=== PATIENT | male | born 1990 | race Caucasian/White ===

== ENCOUNTER 2021-01-14 08:27 | Observation (INO) ==
[2021-01-14] MEDS ORDERED: Nicotine 2 MG GUM BC PRN (10:05)
[2021-01-14] MEDS ORDERED: *HR* LORazepam 1 MG TABLET PO PRN (11:57)
[2021-01-14] MEDS ORDERED: hydrOXYzine pamoate 25 MG CAPSULE PO PRN (11:57)
[2021-01-14] MEDS ORDERED: haloperidoL 5 MG TABLET PO PRN (11:57)
[2021-01-14] MEDS ORDERED: QUEtiapine Fumarate 25 MG TABLET PO PRN (11:57)
[2021-01-14] MEDS ORDERED: *HR* LORazepam 2 MG/ML VIAL IM PRN (11:57)
[2021-01-14] MEDS ORDERED: Mag Hydrox/Al Hydrox/Simeth 30 ML UDC PO PRN (11:57)
[2021-01-14] MEDS ORDERED: Acetaminophen 325 MG TABLET PO PRN (11:57)
[2021-01-14] MEDS ORDERED: MOM Conc 10 ML UD.LIQ PO PRN (11:57)
[2021-01-14] MEDS ORDERED: Haloperidol Lactate 5 MG/ML VIAL IM PRN (11:57)
[2021-01-14] MEDS: Nicotine 21 MG PATCH.TD24 TD SCH (15:04)
[2021-01-15 08:26] VITALS: BP 121/86
[2021-01-15] MEDS: Nicotine 21 MG PATCH.TD24 TD SCH (08:36)
== END 2021-01-15 10:20 | disposition home or self-care (01) ==
LOC: EMEROOARM 08:27 → INTOOBSV 11:39 → 1ANU 11:39
PROVIDERS: ADMIT Psychiatry & Neurology Psychiatry; ATTEND Psychiatry & Neurology Psychiatry

== ENCOUNTER 2022-02-08 07:36 | Inpatient (IN) ==
[2022-02-08 09:08] LABS: Basophils % 0.3 %; Eosinophils % 0.2 %; Hemoglobin 14.5 g/dL (12.9-16.9); Immature Granulocytes % 0.3 % (0-4); Lymphocytes # 1.8 K/mcL (0.6-4.6); Lymphocytes % 19.7 %; Mean Corpuscular HGB Conc 32.2 g/dL (31.6-35.5); Mean Corpuscular Hemoglobin 29.6 pg (28.0-33.3); Mean Corpuscular Volume 91.8 fL (83.0-100.0); Mean Platelet Volume 8.5 fL (9.4-12.4); Monocytes # 0.7 K/mcL (0.0-1.3); Monocytes % 7.4 %; Neutrophils # 6.5 K/mcL (1.6-8.9); Platelet Count 262 K/mcL (140-400); Red Cell Distribution Width 14.9 % (11.5-14.5); Segmented Neutrophils % 72.1 %; White Blood Count 9.1 K/mcL (4.3-11.1)
[2022-02-08 09:29] LABS: Bacteria,Urine Few per hpf (None-Few); Bilirubin,Urine Negative (Negative); Blood,Urine Negative (Negative); Clarity,Urine Clear (Clear); Color,Urine Yellow (Yellow); Glucose,Urine (UA) Normal (Normal); Hyaline Casts,Urine Moderate per lpf (None Seen); Ketones,Urine 60 mg/dL (Negative); Leukocyte Esterase,Urine Moderate (Negative); Mucus,Urine Many per lpf (None-Few); Nitrite,Urine Negative (Negative); PH,Urine 5.5 pH Units (5.0-8.0); Protein,Urine 70 mg/dL (Neg-Trace); Specific Gravity,Urine > 1.030 (1.010-1.025); WBC,Urine 50-100 per hpf (0-3)
[2022-02-08 09:35] LABS: Acetaminophen < 10 mcg/mL (10-20); BUN/Creatinine Ratio 19 (6-26); Blood Urea Nitrogen 17 mg/dL (6-20); Calcium 9.8 mg/dL (8.6-10.3); Carbon Dioxide 27 mEq/L (23-29); Chloride 102 mEq/L (98-107); Ethanol < 10 mg/dL (Less than 10); Glucose 92 mg/dL (70-105); Osmolality,Calculated 293 (280-300); Potassium 4.2 mEq/L (3.5-5.1); Salicylate < 2.5 mg/dL (15.0-30.0); Sodium 141 mEq/L (136-145); eGFR For African Americans > 60 (> 60); eGFR For Non-African Americans > 60 (> 60)
[2022-02-08] MEDS ORDERED: cephALEXin 500 MG CAPSULE PO ONE (09:40)
[2022-02-08 09:44] LABS: Amphetamine Screen,Urine Positive ng/mL (Cutoff=1000); Barbiturate Screen,Urine Negative ng/mL (Cutoff=200); Benzodiazepines Screen,Urine Negative ng/mL (Cutoff=200); Cannabinoid Screen,Urine Negative ng/mL (Cutoff = 50); Cocaine Screen,Urine Negative ng/mL (Cutoff= 300); Opiate Screen,Urine Negative ng/mL (Cutoff=300); Phencyclidine Screen,Urine Negative ng/mL (Cutoff=25)
[2022-02-08 13:31] LABS: Influenza A PCR Negative (Negative); Influenza B PCR Negative (Negative); Resp. Syncytial Virus PCR Negative (Negative)
[2022-02-08 13:32] LABS: SARS-CoV-2 by PCR (In House) Negative (Negative)
[2022-02-08] MEDS ORDERED: Acetaminophen 325 MG TABLET PO PRN (16:10)
[2022-02-08] MEDS ORDERED: *HR* LORazepam 2 MG/ML VIAL IM PRN (16:10)
[2022-02-08] MEDS ORDERED: haloperidoL 5 MG TABLET PO PRN (16:10)
[2022-02-08] MEDS ORDERED: traZODone 50 MG TABLET PO PRN (16:10)
[2022-02-08] MEDS ORDERED: Haloperidol Lactate 5 MG/ML VIAL IM PRN (16:10)
[2022-02-08] MEDS ORDERED: *HR* LORazepam 1 MG TABLET PO PRN (16:10)
[2022-02-08] MEDS ORDERED: hydrOXYzine pamoate 25 MG CAPSULE PO PRN (16:11)
[2022-02-08] MEDS ORDERED: traZODone 50 MG TABLET PO SCH (21:00)
[2022-02-08] MEDS: traZODone 50 MG TABLET PO SCH (21:08)
[2022-02-08] MEDS: cephALEXin 500 MG CAPSULE PO SCH (21:08)
[2022-02-08] MEDS: risperiDONE 1 MG TABLET PO SCH (21:08)
[2022-02-09] MEDS ORDERED: MOM Conc 10 ML UD.LIQ PO PRN (08:04)
[2022-02-09] MEDS ORDERED: Mag Hydrox/Al Hydrox/Simeth 30 ML UDC PO PRN (08:04)
[2022-02-09 10:28] VITALS: O2SAT 97
[2022-02-09] MEDS: cephALEXin 500 MG CAPSULE PO SCH ×4 (11:46→20:41)
[2022-02-09] MEDS: traZODone 50 MG TABLET PO SCH (20:41)
[2022-02-09] MEDS: risperiDONE 1 MG TABLET PO SCH (20:41)
[2022-02-10] MEDS: cephALEXin 500 MG CAPSULE PO SCH ×2 (09:08→12:49)
[2022-02-10 09:32] VITALS: BP 148/108; PULSE 130; TEMP 98.3
== END 2022-02-10 15:10 | disposition home or self-care (01) | DRG 753 ==
LOC: EMEROOARM 07:36 → 1ANU 16:09
PROVIDERS: ADMIT Psychiatry & Neurology Psychiatry; ATTEND Psychiatry & Neurology Psychiatry